=== PATIENT | female | born 1990 | race African-American/Black ===

== ENCOUNTER 2018-09-06 15:47 | Emergency (ER) | payer OTHER ==
[~2018-09-06] VITALS: Ht 160 cm; Wt 87.1 kg
[~2018-09-06 15:47] MED LIST: FLAGYL500 MG PO; LYSTEDA650 MG PO; NOHOMEMEDICATIONS; ONDANSETRON HCL4 M2 PO; PHENERGAN 25 MG25 M1 PO; PREDNISONE 20 M20 MG PO; SALINE NASAL SP30 ML NS; TOPAMAX 100 MG100 MG PO; TRAMADOL 50 MG50 MG PO; ULTRAM 50MG TAB50 MG PO; ZANTAC 150MG T150 M1 PO
[2018-09-06 16:35] LABS: URINE BILIRUBIN NEGATIVE (Negative); URINE BLOOD NEGATIVE (Negative); URINE CLARITY CLEAR; URINE COLOR YELLOW; URINE GLUCOSE-RANDOM* NEGATIVE (Negative); URINE KETONES NEGATIVE (Negative); URINE LEUKOCYTES-REFLEX NEGATIVE (Negative); URINE NITRITE-REFLEX NEGATIVE (Negative); URINE PROTEIN (DIPSTICK) NEGATIVE (Negative); URINE SPECIFIC GRAVITY 1.025 (1.005-1.035)
[2018-09-06 17:00] LABS: ABSOLUTE NEUTROPHILS 3.5 thou/uL (1.4-8.2); BASOPHILS 0.8 % (0.0-2.0); EOSINOPHILS 0.9 % (0.0-3.0); HEMATOCRIT 38.3 % (37.0-47.0); HEMOGLOBIN 12.4 gm/dL (12.0-15.0); LYMPHOCYTES 32.6 % (24.0-44.0); MCHC 32.2 g/dL (28.0-37.0); MCV 80.6 fL (80.0-100.0); MONOCYTES 6.1 % (1.0-8.0); PLATELET COUNT 198 thou/uL (150-400); POLYS 59.6 % (36.0-66.0); RBC 4.76 mil/uL (4.20-5.00); RDW 15.8 % (10.5-14.5); WBC 5.9 thou/uL (4.0-11.0)
[2018-09-06 17:17] LABS: CALCIUM 8.8 mg/dL (8.5-10.1); CREATININE 0.8 mg/dL (0.6-1.0); POTASSIUM 3.5 mmol/L (3.5-5.1)
[2018-09-06 17:21] LABS: ALBUMIN 3.6 g/dL (3.4-5.0); TOTAL BILIRUBIN 0.2 mg/dL (<0.1-1.0); TOTAL PROTEIN 7.5 g/dL (6.4-8.2)
[2018-09-06] MEDS ORDERED: PROTONIX 20 MG20 MG PO (17:38)
[2018-09-06 17:57] VITALS: BP 118/76
== END 2018-09-06 18:02 | disposition home or self-care (01) ==
LOC: ER 15:47
PROVIDERS: Emergency Medicine
DX: K29.70 Gastritis, unspecified, without bleeding (principal); Z88.2 Allergy status to sulfonamides; Z88.8 Allergy status to other drugs, medicaments and biological substances

== ENCOUNTER 2019-08-12 18:24 | Emergency (ER) | payer OTHER ==
[~2019-08-12] VITALS: Ht 167.6 cm; Wt 104.3 kg
[~2019-08-12 18:24] MED LIST changes: +PROTONIX 20 MG20 MG PO
[2019-08-12 19:15] LABS: URINE BILIRUBIN NEGATIVE (Negative); URINE BLOOD 3+ (Negative); URINE CLARITY CLEAR; URINE COLOR YELLOW; URINE GLUCOSE-RANDOM* NEGATIVE (Negative); URINE KETONES NEGATIVE (Negative); URINE LEUKOCYTES-REFLEX NEGATIVE (Negative); URINE NITRITE-REFLEX NEGATIVE (Negative); URINE PROTEIN (DIPSTICK) TRACE (Negative); URINE SPECIFIC GRAVITY 1.025 (1.005-1.035)
[2019-08-12 19:23] LABS: CASTS None Seen /LPF (None Seen); CRYSTALS None Seen /LPF (None Seen); SQUAMOUS 0-3 Few /LPF (0-3)
[2019-08-12 19:24] LABS: URINE WBC-REFLEX 0-5 Rare /HPF (0-5)
[2019-08-12] MEDS ORDERED: MACROBID 100 M100 M1 PO (19:53)
[2019-08-12 20:45] VITALS: BP 115/73
--- NOTE | 2019-08-14 12:34 | EKG ---
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 : 1990 Requested By: Alexis Abbott Order Number: [id number] MD: Lester Morales Measurements Intervals [place] Rate: 89 P: 45 TX: 153 QRS: 51 QRSD: 101 T: 32 QT: 348 QTc: 424 Interpretive Statements Sinus rhythm Poor R wave progression Compared to ECG 09/09/2008 13:53:12 T-wave abnormality no longer present Electronically Signed On 08-13-2019 9:13:28 [employer] by Lester Morales [email or web address] <ELECTRONICALLY SIGNED> By: Lester Morales MD, [facility] 08/13/19 0913 26 26 Lestre Morales MD, [facility] /EPI
== END 2019-08-12 20:45 | disposition home or self-care (01) ==
LOC: ER 18:24
PROVIDERS: Emergency Medicine
DX: O21.9 Vomiting of pregnancy, unspecified (principal); O47.03 False labor before 37 completed weeks of gestation, third trimester; R82.71 Bacteriuria; I10 Essential (primary) hypertension; Z3A.32 32 weeks gestation of pregnancy; Z86.2 Personal history of diseases of the blood and blood-forming organs and certain disorders involving the immune mechanism; Z88.1 Allergy status to other antibiotic agents